=== PATIENT | male | born 1970 | race American Indian/Alaskan Native ===

== ENCOUNTER 2018-03-20 13:01 | Emergency (ER) | payer SELFPAY ==
[2018-03-20 14:34] LABS: Hematocrit 39.5 % (35.5-45.6); Hemoglobin 13.7 gm/dl (11.8-15.2); Mean Corpuscular HGB Conc 35 % (32-34); Mean Corpuscular Hemoglobin 28 pg (28-32); Mean Corpuscular Volume 81 fl (84-94); Platelet Count 181 K/mm3 (140-440); Red Blood Count 4.88 M/mm3 (3.65-5.03)
--- NOTE | 2018-03-20 14:58 | Cat Scan Report ---
FINAL REPORT EXAM: CT CERVICAL SPINE WO CON HISTORY: trauma TECHNIQUE: CT examination of the cervical spine without IV contrast PRIORS: None. FINDINGS: Prevertebral soft tissues are without swelling. No evidence of cervical fracture or vertebral compression. Multilevel degenerative changes are present at the vertebral endplates, facet joints, and uncinate joints. Anterolisthesis: None. Retrolisthesis: None. Disc narrowing: C4-5 slight, C5-6 slight, C6-7 moderate Vertebral endplate, uncinate, and facet degenerative hypertrophic change is associated with right C6-7, left C6-7 osseous neural foraminal stenosis. Soft tissue windows suggest posterior disc bulge at C3-4, C4-5, C5-6, and C6-7. IMPRESSION: No acute skeletal pathology in the cervical spine Degenerative changes, neural foraminal stenosis, and disc narrowing Soft tissue windows suggest multilevel posterior disc bulge
--- NOTE | 2018-03-20 15:09 | Cat Scan Report ---
FINAL REPORT EXAM: CT HEAD/BRAIN WO CON HISTORY: facial injury TECHNIQUE: CT examination of the head without IV contrast PRIORS: None. FINDINGS: Medial displacement of left orbit medial wall may be developmental variation or old trauma. It could be an acute blow-in fracture. Correlate for acute left periorbital trauma. Small 4 mm focus of hyperdensity in the superior medial right parietal lobe may be a small hemorrhagic parenchymal contusion or small focus of subarachnoid bleed. No acute air-fluid level visualized in the included air-filled sinuses. The brain is without mass, mass effect, or acute infarct. There is no midline shift. The ventricles and sulci are age-appropriate. IMPRESSION: 4 mm hyperdense focus in the superior medial right parietal lobe may reflect a small hemorrhagic contusion of the parietal parenchyma or small focus of subarachnoid hemorrhage. No mass effect on adjacent brain. Medial displacement of left orbit medial wall may be developmental variation or old trauma. Correlate for acute left periorbital trauma to exclude acute blow in fracture 03/20/2018 at 2:59 p.m. EST: I discussed the findings over the phone with Dr. Raymundo Zuluaga. He reports direct trauma is forehead and not left orbit. As such, the left orbit blow in fracture is likely chronic. Parietal region bleed also discussed.
[2018-03-20 15:12] LABS: INR 1.06 (0.87-1.13); Partial Thromboplastin Time 29.9 Sec. (24.2-36.6)
[2018-03-20] MEDS ORDERED: ATIVAN IV ONE (15:17)
[2018-03-20] MEDS ORDERED: KEPPRA 1,000 MG/NS 0.75% 100ML 1,000 MG/100 ML BAG IV ONE (15:18)
--- NOTE | 2018-03-20 15:20 | Emergency Department Report ---
ED General Adult HPI - General Chief complaint: Head Injury Stated complaint: ETOH/DEHYDRATION Time Seen by Provider: 03/20/18 14:06 Source: patient Mode of arrival: Stretcher Limitations: No Limitations - History of Present Illness Initial comments: This is a 47-year-old male that was found disoriented by the side of the road. He had apparently fallen down. He had "tremors and diaphoresis and shaking". The patient is able to follow commands now upon my initial encounter. However the nurse informs me that he already pulled out his IV once an attempt to leave. I had to encourage him to relax and try to lie on the gurney. So far he has been reasonably cooperative. He apparently sustained a head injury although he is not providing any such history. He answers to the affirmative that he usually starts. His [place] is stuttering. He is reasonably alert and able to follow simple commands. Otherwise, he is unable to provide any historical information directly. He just answers to the affirmative or negative. -: unknown Associated Symptoms: denies other symptoms (patient denies symptoms somewhat globally) - Related Data Home Medications Medication Instructions Recorded Confirmed Last Taken No Known Home Medications [No 03/20/18 03/20/18 Unknown Reported Home Medications] Allergies Allergy/AdvReac Type Severity Reaction Status Date / Time No Known Allergies Allergy Verified 03/20/18 13:32 ED Review of Systems ROS: Stated complaint: ETOH/DEHYDRATION Other details as noted in HPI Comment: Unobtainable due to pts medical conditions (altered mental status, dysarthric at baseline) ED Past Medical Hx - Past Medical History Previous Medical History?: No - Surgical History Past Surgical History?: No - Social History Smoking Status: Never Smoker Substance Use Type: Alcohol - Medications Home Medications: Home Medications Medication Instructions Recorded Confirmed Last Taken Type No Known Home Medications [No 03/20/18 03/20/18 Unknown History Reported Home Medications] ED Physical Exam - General Limitations: No Limitations General appearance: alert, in no apparent distress - Head Head exam: Present: normocephalic, other (forehead abrasion. No apparent periorbital trauma) - Eye Eye exam: Present: normal appearance, PERRL, EOMI. Absent: scleral icterus - ENT ENT exam: Present: normal exam, mucous membranes moist - Neck Neck exam: Present: normal inspection, full ROM. Absent: tenderness, meningismus - Respiratory Respiratory exam: Present: normal lung sounds bilaterally. Absent: respiratory distress - Cardiovascular Cardiovascular Exam: Present: regular rate, normal rhythm. Absent: systolic murmur, diastolic murmur, rubs, gallop - GI/Abdominal GI/Abdominal exam: Present: soft, normal bowel sounds. Absent: distended, tenderness, guarding, rebound, rigid - Rectal Rectal exam: Present: deferred - Extremities Exam Extremities exam: Present: normal inspection - Back Exam Back exam: Present: normal inspection - Neurological Exam Neurological exam: Present: CN II-XII intact, other (speech impediment ( stuttering) patient states is chronic). Absent: alert (lethargic), oriented X3 (likely but cannot fully ascertain), motor sensory deficit - Psychiatric Psychiatric exam: Present: anxious, flat affect - Skin Skin exam: Present: warm, dry, intact (forehead abrasion elbow abrasion. No acute deformity. Old healed graft right forearm with apparent previous fascial loss), normal color. Absent: rash ED Course Vital Signs 03/20/18 13:32 Temperature 98.5 F Pulse Rate 90 Respiratory 16 Rate Blood Pressure 129/88 O2 Sat by Pulse 98 Oximetry - Reevaluation(s) Reevaluation #1: A stat CT of the patient's head and cervical spine was ordered. CT the head demonstrated a 4 mm hyperdense focus in the superior medial right parietal lobe. I believe this is traumatic contusion versus subarachnoid hemorrhage. There is medial displacement of the left orbital medial wall which may be chronic in nature. Chest x-ray shows no acute process. 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 He was accepted at [facility] by Dr. Tran, attending. I decided to give him Keppra and Ativan prior to transfer. He is stable for transfer to the trauma center. 03/20/18 15:59 ED Medical Decision Making - Lab Data Result diagrams: 03/20/18 13:55 Laboratory Results - last 24 hr 03/20/18 03/20/18 03/20/18 13:55 14:21 14:41 WBC 8.1 RBC 4.88 Hgb 13.7 Hct 39.5 MCV 81 L MCH 28 MCHC 35 H RDW 14.0 Plt Count 181 Seg Neutrophils % Plant And Equipment Worker PT 14.4 INR 1.06 APTT 29.9 POC Glucose 138 H Magnesium 06/07/18 14:41 WBC RBC Hgb Hct MCV MCH MCHC RDW Plt Count Seg Neutrophils % PT INR APTT POC Glucose Magnesium 1.70 Laboratory Results - last 24 hr 03/20/18 03/20/18 03/20/18 13:55 13:55 13:55 WBC 8.1 RBC 4.88 Hgb 13.7 Hct 39.5 MCV 81 L MCH 28 MCHC 35 H RDW 14.0 Plt Count 181 Add Manual Diff Complete Total Counted 100 Seg Neutrophils % Plant And Equipment Worker Seg Neuts % (Manual) 31.0 L Band Neutrophils % 0 Lymphocytes % (Manual) 52.0 H Reactive Lymphs % (Man) 0 Monocytes % (Manual) 16.0 H Eosinophils % (Manual) 1.0 Basophils % (Manual) 0 Metamyelocytes % 0 Myelocytes % 0 Promyelocytes % 0 Blast Cells % 0 Nucleated RBC % Not Reportable Seg Neutrophils # Man 2.5 Band Neutrophils # 0.0 Lymphocytes # (Manual) 4.2 Abs React Lymphs (Man) 0.0 Monocytes # (Manual) 1.3 H Eosinophils # (Manual) 0.1 Basophils # (Manual) 0.0 Metamyelocytes # 0.0 Myelocytes # 0.0 Promyelocytes # 0.0 Blast Cells # 0.0 WBC Morphology Not Reportable Hypersegmented Neuts Not Reportable Hyposegmented Neuts Not Reportable Hypogranular Neuts Not Reportable Smudge Cells Not Reportable Toxic Granulation Not Reportable Toxic Vacuolation Not Reportable Dohle Bodies Not Reportable Pelger-Huet Anomaly Not Reportable Ines Rods Not Reportable Platelet Estimate Not Reportable Clumped Platelets Not Reportable Plt Clumps, EDTA Not Reportable Large Platelets Not Reportable Giant Platelets Not Reportable Platelet Satelliting Not Reportable Plt Morphology Comment Not Reportable RBC Morphology Normal Dimorphic RBCs Not Reportable Polychromasia Not Reportable Hypochromasia Not Reportable Poikilocytosis Not Reportable Anisocytosis Not Reportable Microcytosis Not Reportable Macrocytosis Not Reportable Spherocytes Not Reportable Pappenheimer Bodies Not Reportable Sickle Cells Not Reportable Target Cells Not Reportable Tear Drop Cells Not Reportable Ovalocytes Not Reportable Helmet Cells Not Reportable [place] Bodies Not Reportable [place] Rings Not Reportable Gurpreet Cells Not Reportable Bite Cells Not Reportable Crenated Cell Not Reportable Elliptocytes Not Reportable Acanthocytes (Spur) Not Reportable Rouleaux Not Reportable Hemoglobin C Crystals Not Reportable Schistocytes Not Reportable Malaria parasites Not Reportable Dennis Bodies Not Reportable Hem Pathologist Commnt No PT INR APTT Sodium 144 Potassium 4.4 Chloride 107.3 H Carbon Dioxide 23 Anion Gap 18 BUN 8 L Creatinine 0.8 Estimated GFR > 60 BUN/Creatinine Ratio 10 Glucose 153 H POC Glucose Calcium 8.5 Magnesium Total Bilirubin 0.50 AST 204 H ALT 154 H Alkaline Phosphatase 99 Total Protein 6.9 Albumin 4.1 Albumin/Globulin Ratio 1.5 Plasma/Serum Alcohol 0.37 H 03/20/18 03/20/18 03/20/18 14:21 14:41 14:41 WBC RBC Hgb Hct MCV MCH MCHC RDW Plt Count Add Manual Diff Total Counted Seg Neutrophils % Seg Neuts % (Manual) Band Neutrophils % Lymphocytes % (Manual) Reactive Lymphs % (Man) Monocytes % (Manual) Eosinophils % (Manual) Basophils % (Manual) Metamyelocytes % Myelocytes % Promyelocytes % Blast Cells % Nucleated RBC % Seg Neutrophils # Man Band Neutrophils # Lymphocytes # (Manual) Abs React Lymphs (Man) Monocytes # (Manual) Eosinophils # (Manual) Basophils # (Manual) Metamyelocytes # Myelocytes # Promyelocytes # Blast Cells # WBC Morphology Hypersegmented Neuts Hyposegmented Neuts Hypogranular Neuts Smudge Cells Toxic Granulation Toxic Vacuolation Dohle Bodies Pelger-Huet Anomaly Ines Rods Platelet Estimate Clumped Platelets Plt Clumps, EDTA Large Platelets Giant Platelets Platelet Satelliting Plt Morphology Comment RBC Morphology Dimorphic RBCs Polychromasia Hypochromasia Poikilocytosis Anisocytosis Microcytosis Macrocytosis Spherocytes Pappenheimer Bodies Sickle Cells Target Cells Tear Drop Cells Ovalocytes Helmet Cells [place] Bodies [place] Rings Gurpreet Cells Bite Cells Crenated Cell Elliptocytes Acanthocytes (Spur) Rouleaux Hemoglobin C Crystals Schistocytes Malaria parasites Dennis Bodies Hem Pathologist Commnt PT 14.4 INR 1.06 APTT 29.9 Sodium Potassium Chloride Carbon Dioxide Anion Gap BUN Creatinine Estimated GFR BUN/Creatinine Ratio Glucose POC Glucose 138 H Calcium Magnesium 1.70 Total Bilirubin AST ALT Alkaline Phosphatase Total Protein Albumin Albumin/Globulin Ratio Plasma/Serum Alcohol - EKG Data EKG shows normal: sinus rhythm, axis, intervals, QRS complexes Rate: normal - EKG Data Interpretation: nonspecific ST-T wave mati - Radiology Data Radiology results: report reviewed Critical Care Time: Yes Critical care time in (mins) excluding proc time.: 70 Critical care attestation.: If time is entered above; I have spent that time in minutes in the direct care of this critically ill patient, excluding procedure time. ED Disposition Clinical Impression: Multiple abrasions Closed head injury Qualifiers: Encounter type: initial encounter Qualified Code(s): S09.90XA - Unspecified injury of head, initial encounter Cerebral contusion Qualifiers: Encounter type: initial encounter Laterality: right Loss of consciousness presence/duration: with LOC of 30 min or less Qualified Code(s): S06.311A - Contusion and laceration of right cerebrum with loss of consciousness of 30 minutes or less, initial encounter Disposition: DC/TX-70 ANOTHER TYPE HLTHCARE Is pt being admited?: No Does the pt Need Aspirin: No Condition: Stable Time of Disposition: 16:05
[2018-03-20 15:38] LABS: Alanine Aminotransferase 154 units/L (7-56); Albumin 4.1 g/dL (3.9-5); BUN/Creatinine Ratio 10; Blood Urea Nitrogen 8 mg/dL (9-20); Calcium 8.5 mg/dL (8.4-10.2); Hemolysis Index 18
[2018-03-20 15:47] VITALS: BP 116/77
[2018-03-20 15:48] LABS: Basophils % (Manual) 0 % (0.0-1.8); RBC Morphology Normal; Total Cells Counted 100
--- NOTE | 2018-03-20 15:52 | XRay Report ---
FINAL REPORT EXAM: XR CHEST 1V AP HISTORY: hypertension TECHNIQUE: Frontal portable examination of the chest PRIORS: None FINDINGS: Limited examination due to prominent soft tissue attenuation. Lung bases partly obscured bilaterally. There is no visible pulmonary consolidation, pleural effusion, or pneumothorax. Cardiac silhouette size is normal without vascular congestion. No visible acute displaced fracture in the regional skeleton. IMPRESSION: No acute cardiopulmonary disease in the visualized chest
[2018-03-20 16:06] LABS: Amphetamine Screen,Urine PRESUMPTIVE NEGATIVE; Benzodiazepines Screen,Urine PRESUMPTIVE NEGATIVE; Cannabinoid Screen,Urine PRESUMPTIVE NEGATIVE; Methadone Screen,Urine PRESUMPTIVE NEGATIVE; Opiate Screen,Urine PRESUMPTIVE NEGATIVE
[2018-03-20 16:19] LABS: Cocaine Screen,Urine PRESUMPTIVE POSITIVE
== END 2018-03-20 18:02 | disposition other institution (70) ==
LOC: ED 13:01
DX: S06.310A Contusion and laceration of right cerebrum without loss of consciousness, initial encounter (principal); S50.319A Abrasion of unspecified elbow, initial encounter; W18.30XA Fall on same level, unspecified, initial encounter; Y93.89 Activity, other specified; Y92.89 Other specified places as the place of occurrence of the external cause; Y99.8 Other external cause status
CPT/HCPCS: 36415; 70450; 71045; 72125; 80053; 80307; 82962; 83735; 85007; 85025; 85610; 85730; 93005; 93010; 96365; 96375; 99291; G0480; J1953; J2060; 80320